=== PATIENT | male | born 1995 | race Caucasian/White ===

== ENCOUNTER 2018-06-30 09:59 | Emergency (ER) | payer BC ==
--- NOTE | 2018-06-30 12:54 | EDPHY ---
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 He has not had fever. The cough has been increasing. He has had intermittent sore throat, none now. No earache (although he had brief earache at the onset of this illness), no headache no chest pain, no pain with deep breathing, no calf pain or swelling. He has not had vomiting or abdominal pain but has had interittent diarrhea for the past two days (six episodes total). He is not taking anything for these symptoms. REVIEW OF SYSTEMS: A ten system review of systems was performed and is negative with the exception of the items mentioned in the HPI. 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 General Appearance: Alert. Vital signs reviewed. Eyes: Pupils equal and round, no conjunctival injection, no discharge. Anicteric. ENT, Mouth: Mucous membranes are moist, no oropharyngeal erythema or edema. TMs normal. Neck: No lymphadenopathy, supple. Trachea midline. Respiratory: Lungs are clear to auscultation; no wheezes, rales, or rhonchi. Cardiovascular: Regular rate and rhythm; no murmur, rub, or gallop. Gastrointestinal: Abdomen is soft and nontender, no masses or organomegaly, bowel sounds normal. Skin: Warm and dry, no rashes on exposed skin, normal color. Back: Nontender to palpation over the thoracolumbar spine. No CVAT. Extremities: No lower extremity edema, no calf tenderness or swelling. Neurological: Alert and oriented. Moving all four extremities easily and equally. Psychiatric: Normal affect. - Personal History Current Tetanus/Diphtheria Vaccine: Unsure Current Tetanus Diphtheria and Acellular Pertussis (TDAP): Unsure - Medical/Surgical History Hx Asthma: No Hx Chronic Respiratory Disease: No Hx Diabetes: No Hx Cardiac Disease: No Hx Renal Disease: No Hx Cirrhosis: No Hx Alcoholism: No Hx HIV/AIDS: No Hx Splenectomy or Spleen Trauma: No Other PMH: denies - Social History Smoking Status: Never smoked Constitutional: Initial Vital Signs Temperature (C) 37 C 06/30/18 10:11 Heart Rate 71 06/30/18 10:11 Respiratory Rate 16 09/05/18 10:11 Blood Pressure 124/72 H 06/30/18 10:11 O2 Sat (%) 95 06/30/18 10:11 O2 Delivery Mode Room Air Allergies/Adverse Reactions: No Known Allergies Allergy (Unverified 06/30/18 10:10) Home Medications: Medication Instructions Recorded Albuterol [Proventil Inhaler HFA 1 - 2 puffs IH Q4 #1 mdi 06/30/18 (*)] Azithromycin [Zithromax] 250 mg PO DAILY #6 tab 06/30/18 guaiFENesin/HYDROCODONE [[place] 473 ml PO Q4-6PRN PRN #1 solution 06/30/18 2.5-200 mg/5 ml Soln] Medical Decision Making ED Course/Re-evaluation: Occasional cough heard. CXR without infiltrate, pneumothorax, other abnormality. I do not suspect pneumonia. No wheezing or history of RAD. Immunizations current, pertussis in differential. Bronchitis likely. There is no respiratory compromise. He reports recent diarrhea, none while in ED. I am recommending symptomatic treatment with cough medication, albuterol inhaler. Zpak prescribed with pertussis in mind. Follow up encourage if symptoms persist and referrals for OP care provided. Departure - Departure Disposition: Home, Routine, Self-Care Clinical Impression: Acute bronchitis Qualifiers: Bronchitis organism: unspecified organism Qualified Code(s): J20.9 - Acute bronchitis, unspecified Condition: Good Instructions: Acute Bronchitis (ED) Additional Instructions: As we discussed, it is not entirely clear what is causing your persistent cough. You do not have a pneumonia. Your chest x-ray looks normal. I am prescribing a course of azithromycin to treat possible pertussis. I am prescribing an albuterol inhaler to treat bronchitis. You should you use it 4 times daily, 2 puffs at a time. I am prescribing a cough syrup. Referrals: STEPHANIE SCHWARZ [Other] - As per Instructions Daniel Torrez DO [Doctor of Osteopathy] - As per Instructions Prescriptions: Albuterol [Proventil Inhaler HFA (*)] 1 - 2 puffs IH Q4 #1 mdi Azithromycin [Zithromax] 250 mg PO DAILY #6 tab guaiFENesin/HYDROCODONE [[place] 2.5-200 mg/5 ml Soln] 473 ml PO Q4-6PRN PRN #1 solution PRN Reason: cough
[2018-06-30 13:26] VITALS: BP 120/74
== END 2018-06-30 13:26 | disposition home or self-care (01) ==
DX: J20.9 Acute bronchitis, unspecified (principal)

== ENCOUNTER 2018-07-18 10:51 | Emergency (ER) | payer BC ==
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
[2018-07-18 12:04] VITALS: BP 120/84
== END 2018-07-18 12:03 | disposition home or self-care (01) ==
DX: S43.401A Unspecified sprain of right shoulder joint, initial encounter (principal); V18.0XXA Pedal cycle driver injured in noncollision transport accident in nontraffic accident, initial encounter; Y92.410 Unspecified street and highway as the place of occurrence of the external cause
CPT/HCPCS: A4565